=== PATIENT | female | born 1960 | race Caucasian/White ===

== ENCOUNTER 2018-06-30 12:18 | Inpatient (IN) | payer MEDICARE ==
[~2018-06-30] VITALS: Ht 157.5 cm; Wt 52.4 kg
[2018-06-30] VITALS (24 sets, daily range): BP systolic 125–225; BP diastolic 58–109
[~2018-06-30 12:18] MED LIST: ADVAIR DISK1 IN; ADVAIR DISKU1 IN; ALLOPURINOL300 MG PO; ASPIRIN ADULT L81 M1; ASPIRIN LOW81 M1 PO; ATIVAN0.5 MG PO; BACTRIM DS1 TAB PO; CLARITIN10 MG PO; CLINDAMYCIN300 MG PO; CORTISPORIN OTI10 M2 AD; CYCLOBENZAPR10 MG PO; DIAZEPAM5 MG PO; DICLOFENAC75 MG; DIFLUCAN150 MG PO; DOXYCYCL HYC100 M3 OR; DOXYCYCL HYC100 MG PO; DUONEB IN; EFFEXOR XR75 MG PO; FLEXERIL OR; FLONASE NASAL50 MCG; FLONASE0.05 %; FLORASTOR250 M1 PO; FLOVENT HFA44 MCG IN; GABAPENTIN100 MG PO; GAUZE; HYDROCHLORO25 MG/TAB PO; HYDROCHLOROT25 MG PO; HYDROCO/APAP1 TA9 PO; IMITREX25 MG PO; LIPITOR80 M1 PO; LISINOPRIL10 MG PO; LISINOPRIL20 M1 PO; LISINOPRIL20 MG PO; LISINOPRIL5 MG OR; LOPRESSOR 550 MG/TAB PO; LORTAB 7.57.5 MG PO; MEDDOSEPAK PO; MELOXICAM7.5 MG PO; METHOCARBAM500 MG; MULTI VIT; NAPROSYN500 MG PO; NORCO1 TA1; NORVASC PO; PERCOCET 5/325M1 TAB PO; PHENERGAN25 MG/TAB; PRAVACHOL20 MG PO; PRAVASTATIN SOD40 MG PO; PROVENTIL HFA IN; PROVENTIL INH17 GM IN; PROZAC20 MG PO; SERTRALINE50 MG; TESSALON PER100 MG PO; TRAZODONE100 MG PO; TRAZODONE50 MG PO; TRICOR48 MG PO; TYLENOL325 MG OR; ULTRAM50 MG OR; ULTRAM50 MG PO; ZANAFLEX4 MG PO; ZYRTEC10 MG PO; [UNRECOGNIZED DRUG - OTHER]; [UNRECOGNIZED DRUG - OTHER] EX; [UNRECOGNIZED DRUG - SUPPLY] EX
--- NOTE | 2018-06-30 12:19 | NUR ---
PT TAKEN DIRECTLY TO RM 10 IN WHEELCHAIR WITH SOB, NO FAMILY MEMBERS PRESENT. PT ASSISTED TO STRETCHER AND MONITORS PLACE. NOTIFIED
--- NOTE | 2018-06-30 12:39 | NUR ---
pt immediately to room 10 via wc. pt anxious, hyperventilating, c/o shortness of breath that is worse while laying flat or on exertion. pt states " haven't been on any of my medication for COPD in the past year. monitor shows sinus tach, no ectopy. md at bedside.
[2018-06-30 12:54] LABS: IMMATURE GRANULOCYTES 0.6 % (0.0-5.0); MEAN CELL VOLUME 96.5 fL CALC (80.0-100.0); MEAN CORPUSCULAR HGB 33.2 pG CALC (26.0-32.0); MEAN CORPUSCULAR HGB CONC 34.4 g/L CALC (32.0-36.0); NEUT# 5.92 thou/uL (2.00-7.15); RED BLOOD COUNT 2.83 mill/uL (4.20-5.60); RED CELL DISTRI WIDTH 13.2 % (11.5-15.5)
[2018-06-30 13:05] LABS: HEMATOCRIT 27.3 % (37.0-47.0); HEMOGLOBIN 9.4 g/dl (12.0-16.0)
--- NOTE | 2018-06-30 13:06 | NUR ---
pt with hob elevated, non productive cough noted, ls diminished. monitor shows sr, no ectopy. pt medicated with labetolol 20mg iv slow push for hypertension. bp 228/101
[2018-06-30 13:16] LABS: ALBUMIN 3.7 g/dL (3.2-5.0); BILIRUBIN, TOTAL 0.9 mg/dL (0.0-1.4); POTASSIUM 3.3 mmol/l (3.5-5.1); TOTAL PROTEIN 6.6 g/dL (6.3-8.2)
--- NOTE | 2018-06-30 14:00 | NUR ---
INITIATED IV AZITHROMYCIN ORDERED. PT RESP EVEN AND UNLABORED SLIGHTLY TACHYPNEIC RR 24. MAEW.PT STATES HER CHEST HURTS "FROM COUGHTING". O2 SAT 100% ON O2@2L VIA NC
--- NOTE | 2018-06-30 14:40 | NUR ---
pt reports pain to iv site right wrist. iv removed per pt request.
--- NOTE | 2018-06-30 14:55 | NUR ---
CM spoke with regarding admission status and after review of messi chart advised IP. Dr. Llamas voiced agreement.
--- NOTE | 2018-06-30 15:14 | NUR ---
Admission Note Report Given to: moris canada Transported by: Wheelchair x Stretcher Transported with: x Nurse x Transporter x Patent IV x O2 x Field Automobile Adjuster
--- NOTE | 2018-06-30 15:31 | NUR ---
PT ARRIVED TO ICU BED 7 VIA STRETCHER FROM ED. AMBULATED WITH CANE TO BED WITH SBA, STEADY GAIT. PT A&OX3, ABLE TO MAKE NEEDS KNOWN.PT STATES ALLERGY TO PCN AND LEVAQUIN, SOME ADHESIVES. PT IS SR ON TELEMETRY, HR-81, B/P- 198/88 ,T-97.5, RR-22, [id number]% ON 2LPM VIA NC, RESPIRATION EVEN/UNLABORED. LS CLEAR IN UPPER LOBES, DIMINISHED IN THE BASES. PT DENIES SOB AT THIS TIME. ABDOMEN SOFT, NON/TENDER, BSX4. PT STATES LAST BM 1018. PT SKIN CDI, BRUISING NOTED ON RLE FROM TOES TO MID CALF, PT CAP REFILL <3SEC, ABLE TO FLEX AND EXT AT ANKLE, WIGGLE ALL DIGITS. PT STATED SHE FELL AFTER AND EPISODE OF SYNCOPE AT HOME 3 DAYS AGO. PT RESTING IN BED, ORIENTED TO ROOM, UNIT AND CALL LIGHT . PT DEMONSTARTED AND VERBALIZED UNDERSTANDING. CALL LIGHT IN REACH, WILL MONITOR.
--- NOTE | 2018-06-30 16:15 | NUR ---
DAUGHTER ARRIVED AT THE BEDSIDE.
--- NOTE | 2018-06-30 16:20 | NUR ---
DR. OTERO AT THE BEDSIDE FOR ASSESSMENT AND TO DISCUSS PLAN OF CARE, NEW ORDERS RECIEVED.
--- NOTE | 2018-06-30 17:09 | NUR ---
CARDENE 5MG/HR STARTED TO LFA,PER ORDERS. NO S/S OF INFILTRATION NOTED AT SITE.
--- NOTE | 2018-06-30 17:40 | NUR ---
Peripheral IV started. IV access obtained with #20 AutoGuard at Right Forearm with IV stick attempts. Flushes easily with good blood return.
--- NOTE | 2018-06-30 17:55 | NUR ---
16FR KRUSE CATHETER PLACED USING STERILE TECHNIQUE, IMMEDIATE URINE RETURN NOTED. PT TOLERATED PROCEDURE WELL. URINE SPECIMEN OBTAINED AND SENT TO LAB.
--- NOTE | 2018-06-30 18:15 | NUR ---
DIETARY ON UNIT, DINNER TRAY SET UP. MORE FAMILY ARRIVED AT BEDSIDE.
[2018-06-30 19:59] LABS: URINE BILIRUBIN - DIPSTICK NEGATIVE (NEGATIVE); URINE BLOOD DIPSTICK TRACE-INTACT (NEGATIVE); URINE CLARITY CLEAR; URINE COLOR YELLOW; URINE GLUCOSE - DIPSTICK NEGATIVE (NEGATIVE); URINE KETONE NEGATIVE (NEGATIVE); URINE LEUK ESTERASE NEGATIVE (NEGATIVE); URINE NITRITE - DIPSTICK NEGATIVE (Negative); URINE PH 5.5 (4.5-8.0); URINE PROTEIN - DIPSTICK 100 mg/dL (NEG-TRACE); URINE UROBILINOGEN - DIPSTICK 0.2 E.U./dL (0.2)
[2018-06-30 20:00] LABS: URINE RBC 0-2 RBC/hpf (0-5)
--- NOTE | 2018-06-30 20:00 | NUR ---
PT IN HIGHFOWLERS A/O X3, RESPIRATIONS EVEN AND UNLABORED ON O2 @2L VIA NC, O2 SAT 96%, C/O GENERALIZED PAIN AND AXIETY. DR. OTERO NOTIFIED, NEW ORDERS RECEIVED, WILL MEDICATE PER ORDERS. LR INFUSING AT 50ML/HR, CARDENE GTT AT 5MG/HR, B/P 153/84, HR 90. KRUSE CATHETER DRAINING CLEAR YELLOW URINE. PT AWARE SHE IS ON 1LITER FLUID RESTRICTION. ENCOURAGED TO USE CALL LIGHT FOR ASSISTANCE, WILL CONTINUE TO MONITOR.
[2018-06-30 20:01] LABS: COCAINE NEGATIVE (NEGATIVE); METHADONE NEGATIVE (NEGATIVE); TETRAHYDROCANNABIONOL NEGATIVE (NEGATIVE)
[2018-06-30 20:02] LABS: BARBITURATES NEGATIVE (NEGATIVE); OXCYCODONE NEGATIVE (NEGATIVE); TRICYLIC ANTIDEPRESSANTS NEGATIVE (NEGATIVE)
--- NOTE | 2018-06-30 21:10 | NUR ---
C/O GENERALIZED PAIN 04/30, MORPHINE 2MG IV ADMINISTERED PER DR'S ORDERS.
--- NOTE | 2018-06-30 23:40 | NUR ---
CARDENE GTT RATE REDUCED TO 2.5MG/HR, B/P 125/62, HR 83. RESTING WITH EYES CLOSED, AND SNORING, CALL LIGHT IN REACH. WILL CONTINUE TO MONITOR.
[2018-07-01] VITALS (20 sets, daily range): BP systolic 135–214; BP diastolic 64–108
--- NOTE | 2018-07-01 01:05 | NUR ---
RESTING WITH EYES CLOSED, RESPIRATIONS EVEN AND UNLABORED. CARDENE GTT INFUSING AT 2.5MG/HR, B/P 135/64, HR 91. CALL LIGHT IN REACH.
--- NOTE | 2018-07-01 03:00 | NUR ---
RESTING WITH EYES CLOSED, RESPIRATIONS EVEN AND UNLABORED, B/P 146/69, HR 82. CADENE GTT INFUSING TO RFA AT 2.5MG/HR. CALL LIGHT IN REACH. WILL CONTINUE TO MONITOR.
--- NOTE | 2018-07-01 04:58 | NUR ---
MORNING BLOOD WORK DRAWN BY RENEWABLE ENERGY ENGINEER, TOLERATED WELL.
--- NOTE | 2018-07-01 05:14 | NUR ---
PT TEARY EYED AND EMOTIONAL REGARDING HER HEALTH, TEACHING DONE WITH PT REGARDING COMPLIANCE WITH MEDS AND F/U WITH DOCTORS APPOINTMENTS. C/O GENERALIZED PAIN 8/10, MORPHINE 2MG IV ADMINISTERED PER DR'S ORDERS. SNACK PROVIDED PER PT REQUEST,CALL LIGHT IN REACH.
[2018-07-01 05:43] LABS: ALBUMIN 3.1 g/dL (3.2-5.0); BILIRUBIN, TOTAL 0.4 mg/dL (0.0-1.4); HEMATOCRIT 24.8 % (37.0-47.0); HEMOGLOBIN 8.3 g/dl (12.0-16.0); IMMATURE GRANULOCYTES 0.6 % (0.0-5.0); MAGNESIUM 1.8 mg/dL (1.6-2.3); MEAN CELL VOLUME 99.2 fL CALC (80.0-100.0); MEAN CORPUSCULAR HGB 33.2 pG CALC (26.0-32.0); MEAN CORPUSCULAR HGB CONC 33.5 g/L CALC (32.0-36.0); NEUT# 6.12 thou/uL (2.00-7.15); POTASSIUM 3.7 mmol/l (3.5-5.1); RED BLOOD COUNT 2.5 mill/uL (4.20-5.60); RED CELL DISTRI WIDTH 13.5 % (11.5-15.5); TOTAL PROTEIN 5.6 g/dL (6.3-8.2)
--- NOTE | 2018-07-01 08:00 | NUR ---
PT FINISHING WITH BREAKFAST AT THIS TIME. ASSESMENT COMPLETED AT THIS TIME (SEE INTERVENTIONS). LUNG SOUNDS CLEAR WITH DIMINISHED BASES. HR NORMAL. BOWEL SOUNDS ACTIVE. NO EDEMA OR SWELLING. #22 IN THE LFA AND #20 RFA INFUSING WELL. FREE FROM REDNESS OR EDEMA. PT HAVING PAIN BUT DOESNT WANT MEDS AT THIS TIME. CALL BELLO IN REACH. WILL CONTINUE TO MONITOR.
--- NOTE | 2018-07-01 10:00 | NUR ---
DR OTERO IN TO SEE PT AT THIS TIME.SON AND DAUGHTER AT BEDSIDE WELL. SPOKE TO PT REGARDING POSSIBLE NEED FOR DIALYSIS R/T CONTINUED POOR KIDNEY FUNCTION. ALSO SPOKE TO HER REGARDING IMPORTANCE OF COMPLIANCY WITH HEALTHCARE. EDUCATED REGARDING DR LEE CONSULT. PT AWARE AND ALL QUESTIONS ANSWERED. VERBALIZES UNDERSTANDING.
[2018-07-01 11:12] LABS: PROTHROMBIN TIME 10.7 SECONDS (9.0-12.5)
[2018-07-01 11:18] LABS: TSH, 3RD GENERATION 1.26 uIU/mL (0.47 - 4.68)
--- NOTE | 2018-07-01 11:35 | NUR ---
PT TO US VIA WHEELCHAIR. PORTABLE O2 AT 2L WITH PT.
--- NOTE | 2018-07-01 13:40 | NUR ---
PT RETURNS FROM US. TOLERATED WELL. FEELS MUCH BETTER. VERY HUNGRY. MEDICATED PER ORDER.#20 RFA INFUSING WELL. SET UP FOR LUNCH. VOICING NO NEW COMPLAINTS. CALL BELLO IN REACH. WILL CONTINUE TO MONITOR.
--- NOTE | 2018-07-01 14:15 | NUR ---
AWARE OF CONTINUED HYPERTENSION
--- NOTE | 2018-07-01 15:00 | NUR ---
PT RESTING QUIETLY IN BED WITH EYES CLOSED. BP 204/97 HR 86. PT ASYMPTOMATIC. RESPIRATIONS ARE EVEN AND UNLABORED. WILL CONTINUE TO MONITOR.
--- NOTE | 2018-07-01 16:45 | NUR ---
PT AWAKE WITH FAMILY AT BED SIDE. ASKING FOR DOUBLE PORTIONS OF FOOD. STILL FEELING PRETTY GOOD. STILL HAVING SOME PAIN BUT WOULD LIKE TO HOLD OFF FOR NOW.VOICING NO COMPLAINTS AT THIS TIME.
--- NOTE | 2018-07-01 16:45 | NUR ---
AWARE OF CONTINUED HYPERTENSION, NEW ORDERS REC'D
--- NOTE | 2018-07-01 17:00 | NUR ---
PT MEDICATED FOR ORDERS. NEW VISITORS AT BEDSIDE.
--- NOTE | 2018-07-01 17:15 | NUR ---
MEDICATED FOR HYPERTENSION ORDERD, FAMILY MEMBERS AT BEDSIDE, WILL CONTINUE TO MONITOR.
--- NOTE | 2018-07-01 17:40 | NUR ---
PT ASSISTED TO ECHO VIA WHEELCHAIR WITH BUSINESS EMPLOYMENT SPECIALIST. FAMILY REMAINS IN THE ROOM.
--- NOTE | 2018-07-01 18:30 | NUR ---
PT RETURNED FROM US VIA WHEELCHAIR. MEDICATED FOR PAIN PER ORDER. PT SHAKY AND TEARFUL.COMFORT PROVIDED. DAUGHTER AND SON AT BEDSIDE. FOOD SETUP WHEN READY TO EAT. CALL BELLO IN REACH. WILL CONTINUE TO MONITOR.
--- NOTE | 2018-07-01 19:10 | NUR ---
PT IN HIGHFOWLERS A/O X3, RESPIRATINS EVEN AND UNLABORED ON RA, O2 SAT 98%. ADMITS TO GENERALIZED PAIN /10, WAS MEDICATED WITH MORPHINE BY JT RN AT 1840. B/P 199/82, HR 94, HYDRALAZINE IV ALSO GIVEN BY JT RN AT 1700. FAMILY AT BED SIDE. 2GM NA DIET HEATED FOR PT AT THIS TIME. NS INFUSING TO RFA AT KVO. ORIENTED TO USE CALL LIGHT FOR ASSISTANCE, WILL CONTINUE TO MONITOR.
--- NOTE | 2018-07-01 20:00 | NUR ---
OOB TO BATHROOM WITH SLOW WEAK GAIT, PROVIDING OWN COMPLETE BATH, AND ORAL CARE, CLEAN GOWN AND CLEAN LINENS PROVIDED. BACK TO BED. CALL LIGHT IN REACH.
--- NOTE | 2018-07-01 22:00 | NUR ---
SITTING UP IN BED READING, VOICES NO CONCERNS AT THIS TIME. RESPIRATIONS EVEN AND UNLABORED. CALL LIGHT IN REACH.
[2018-07-02] VITALS (21 sets, daily range): BP systolic 152–228; BP diastolic 66–94
--- NOTE | 2018-07-02 00:20 | NUR ---
RESTING IN FOWLERS POSITION WITH EYES CLOSED, RESPIRATIONS EVEN AND UNLABORED ON RA, O2 SAT 95%. B/P 153/71, SR 80 ON HEART MONITOR. CALL LIGHT IN REACH, WILL CONTINUE TO MONITOR.
--- NOTE | 2018-07-02 02:07 | NUR ---
RESTING IN FOWLERS POSITION WITH EYES CLOSED, RESPIRATIONS EVEN AND UNLABORED ON RA, O2 SAT 94%. B/P 163/77, SR 82 ON HEART MONITOR. CALL LIGHT IN REACH, WILL CONTINUE TO MONITOR.
--- NOTE | 2018-07-02 05:16 | NUR ---
RESTING WITH EYES CLOSED, RESPIRATIONS EVEN AND UNLABORED, WAKES EASILY TO VERBAL COMMAND, B/P 170/83, HR 88, HYDRALAZINE 10MG IV ADMINISTERED BY АЛЕКСАНДР PADILLA. DENIES PAIN. CALL LIGHT IN REACH.
--- NOTE | 2018-07-02 06:20 | NUR ---
MORNING LABS DRAWN BY COMPUTER AIDED DESIGN DRAFTER, TOLERATED WELL.
[2018-07-02 06:36] LABS: HEMATOCRIT 25.5 % (37.0-47.0); HEMOGLOBIN 8.5 g/dl (12.0-16.0); IMMATURE GRANULOCYTES 0.7 % (0.0-5.0); MEAN CELL VOLUME 100.8 fL CALC (80.0-100.0); MEAN CORPUSCULAR HGB 33.6 pG CALC (26.0-32.0); MEAN CORPUSCULAR HGB CONC 33.3 g/L CALC (32.0-36.0); NEUT# 5.6 thou/uL (2.00-7.15); RED BLOOD COUNT 2.53 mill/uL (4.20-5.60); RED CELL DISTRI WIDTH 14.4 % (11.5-15.5)
[2018-07-02 06:58] LABS: ALBUMIN 2.8 g/dL (3.2-5.0); BILIRUBIN, TOTAL 0.3 mg/dL (0.0-1.4); CREATININE 4.5 mg/dL (0.5-1.0); MAGNESIUM 1.8 mg/dL (1.6-2.3)
[2018-07-02 07:02] LABS: POTASSIUM 4.6 mmol/l (3.5-5.1)
--- NOTE | 2018-07-02 07:20 | NUR ---
PT RESTING IN BED; ALERT AND ORIENTED; AM ASSESSMENT COMPLETED; SEE INTERVENTIONS; O2 AT 2L VIA NC; SATS 96-99%; LUNGS SLIGHTLY COARSE WITH MOIST LABORATORY APPARATUS GLASS GRINDER COUGH, SKIN DRY AND SOME SCATTERED ECCHYMOTIC AREAS OTHERWISE INTACT, IV ACCESS IN R POSTERIOR FOREARM INTACT. AFEBRILE WITH BP SLIGHTLY ELEVATED WILL MEDICATE WITH AM MEDS ORDERED, FLUID RESTRICTION REINFORCED AND MAINTAINED, TELE READING SR RATE INT HE 90'S PT EXHIBITS MILD ANXIETY AT THIS TIME, DOES ADMIT TO HAVEING "REAL BAD ANXIETY ALL MIY LIFE, IT RUNS IN THE FAMILY"; TRACE EDENOTED TO BILATERAL ANKLES, KRUSE CATHETER INTACT FOR STRICT/ACCURATE I&O'S RELATED TO KINDEY FAILURE, CATH SECURITY DEVICE INTACT ON R UPPER THIGH, CALL BELLO WITHIN REACH, SAFETY MEASURES REINFORCED, WILL CONTINUE TO MONITOR.
--- NOTE | 2018-07-02 08:30 | NUR ---
PT HAS GOOD APPETITE AND IS EATING 100% OF MOST MEALS WITH DOUBLE PORTIONS, DENIES N/V, STATES SHE USUALLY HAS BM DAILY AT HOME AND NONE SINCE ADMISSION HERE, WILL DISCUSS WITH MD ON AM ROUNDS. CALL BELLO WITHIN REACH, PT REMAINS RESTING IN BED WTH HOB RAISED ALMOST 90 DEGREES. WILL CONTINUE TO MONITOR.
--- NOTE | 2018-07-02 09:10 | NUR ---
MEDICATED FOR COMPLAINT OF GENERALIZED PAIN, REPOSITIONED FOR COMFORT, O2 REMAINS ON AT 2L VIA NC, COMPLAINTS OF SOME MILD NOSE BLEEDING RELATED TO DRY NARES, WILL HAVE RT HUMIDIFY O2 FOR COMFORT, TOLERATED AM MEAL WELL, FLUID RESTRICTION REINFORCED AND MAINTAINED, WILL CONTINUE TO MONITOR.
--- NOTE | 2018-07-02 09:28 | NUR ---
VISITOR AT BEDSIDE, GOOD PAIN RELIEF VERBALIZED; WILL CONTINUE TO MONITOR.
--- NOTE | 2018-07-02 09:44 | NUR ---
CARY FROM CASE MGMT AT BEDSIDE
--- NOTE | 2018-07-02 09:54 | NUR ---
MGMT REMAINS AT BEDSIDE IWTH PT AND DAUGHTER DISCUSSING PLAN OF CARE AND D/C OPTIONS
--- NOTE | 2018-07-02 10:19 | NUR ---
PT TEARY EYED AND CRYING WITH FAMILY MEMBER, EMOTIONAL SUPPORT PROVIDED XANAX REQUESTED ADN PROVIDED ORDERED, WILL CONTINUE TO MONITOR.
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
--- NOTE | 2018-07-02 10:55 | NUR ---
PT RESTING IN BED REMAINS EMOTIONAL RELATED TO SON VISIT, CASE MGMT AND / YOHANNES GALEANO AT BEDSIDE. PLAN OF CARE DISCUSSED INCLUDING POTENTIAL TRASNFER TO [facility] FOR POSSIBLE DIALYSIS. DAUGHTER AND FRIEND REMAIN AT BEDSIDE.
--- NOTE | 2018-07-02 11:25 | NUR ---
SET UP ASSIST PROVIDED FRO AFTERNOON MEAL, CALL BELLO WITHIN REACH, VISITOR REMAINS AT BEDSIDE.
[2018-07-02 12:25] LABS: CHOLESTEROL HDL RATIO 3.7 (<4.4 (CALC))
--- NOTE | 2018-07-02 12:35 | NUR ---
PT ATE 100% OF AFTERNOON MEAL, FAMILY MEMBERS AT BEDSIDE, PT REMAINS INTERMITTENLY EMOTIONAL AND TEARY BUT BP SLIGHTLY IMPROVED, CALL BELLO WITHIN REACH, WILL CONTINUE TO MONITOR.
--- NOTE | 2018-07-02 13:40 | NUR ---
PT RESTING IN BED WITH EYES CLOSED, NO S/S OF DISTRESS, CONSIDERABLY LESS ANXIOUS AND TEARY EYED THAN EARLIER, CALL BELLO WITHIN REACH, FLUID RESTRICTION MAINTAINED, WILL CONTINUE TO MONITOR.
--- NOTE | 2018-07-02 14:31 | NUR ---
PT RESTING IN BED, VS STABLE, NO VISITORS AT THIS TIME, FLUID RESTRICTION MAINTAINED, WILL CONTINUE TO MONITOR
--- NOTE | 2018-07-02 14:59 | NUR ---
DAUGHTER MEETING WITH CASE MGMT AND DCF SPINDLE MAKER, PT MEDICATED ORDERED, WILL CONTINUE TO MONITOR.
--- NOTE | 2018-07-02 15:03 | NUR ---
VISITOR AT BEDSIDE
--- NOTE | 2018-07-02 15:33 | NUR ---
DCF LOSS PREVENTION AUDITOR AT BEDSIDE MEETING WITH PATIENT.
--- NOTE | 2018-07-02 16:14 | NUR ---
DC GONE AT THIS TIME AND VISITOR BACK AT BEDSIDE, CALL BELLO WITHIN REACH, WILL CONTINUE TO MONITOR.
--- NOTE | 2018-07-02 17:44 | NUR ---
SET UP ASSIST PROVIDED FRO PM MEAL, DAUGHTER AND GRANDDAUGHTER AT BEDSIDE, PT CALM AND DENIES PAIN OR DISCOMFORT AT THIS TIME, O2 REMAINS ON AT 2L VIA NC, BP IMPROVED OVER THIS AM, REMAINS AFEBRILE, WILL CONTINUE TO MONITOR.
--- NOTE | 2018-07-02 18:13 | NUR ---
POWER OF PACKAGE DYE STAND LOADER PAPERWORK PLACED ON PATIENT CHART, TOLERATED PM MEAL WELL, CALL BELLO WITHIN REACH
--- NOTE | 2018-07-02 19:10 | NUR ---
awakens easily. denies acute resp distress. o2 cont per nc. diagnostic cardiac sonographer shows sinus rhythm. #20 rfa ns infusing @ 20cchr. fluid restriction conts. krause cath in place. urine clear yellow. fall precautions cont.
--- NOTE | 2018-07-02 20:00 | NUR ---
awake. no distress. vs.
--- NOTE | 2018-07-02 22:00 | NUR ---
left. no distress. insulation board coater operator shows sinus rhythm.
[2018-07-03 00:01] VITALS: BP 138/62
--- NOTE | 2018-07-03 00:01 | NUR ---
eyes closed. no distress. o2 cont.
[2018-07-03 02:00] VITALS: BP 133/60
--- NOTE | 2018-07-03 02:00 | NUR ---
resting quietly. resps even & unlabored. no apparent distress.
[2018-07-03 04:00] VITALS: BP 137/65
--- NOTE | 2018-07-03 04:00 | NUR ---
eyes closed. no distress. cardiac technician shows sinus rhythm.
--- NOTE | 2018-07-03 05:15 | NUR ---
lab here. blood drawn.
[2018-07-03 05:45] LABS: HEMOGLOBIN 7.4 g/dl (12.0-16.0); IMMATURE GRANULOCYTES 0.9 % (0.0-5.0); MEAN CELL VOLUME 102.7 fL CALC (80.0-100.0); MEAN CORPUSCULAR HGB CONC 32.2 g/L CALC (32.0-36.0); NEUT# 6.04 thou/uL (2.00-7.15); RED BLOOD COUNT 2.24 mill/uL (4.20-5.60); RED CELL DISTRI WIDTH 14.5 % (11.5-15.5)
[2018-07-03 05:50] LABS: ALBUMIN 2.6 g/dL (3.2-5.0); BILIRUBIN, TOTAL 0.2 mg/dL (0.0-1.4); CREATININE 4.7 mg/dL (0.5-1.0); MAGNESIUM 1.9 mg/dL (1.6-2.3); POTASSIUM 4.4 mmol/l (3.5-5.1); TOTAL PROTEIN 4.9 g/dL (6.3-8.2)
--- NOTE | 2018-07-03 05:51 | NUR ---
eyes closed. no distress. information officer shows sinus rhythm.
--- NOTE | 2018-07-03 06:45 | NUR ---
RECIEVED REPORT FROM KASSIE HUSSEIN. ASSUMED PT CARE.
[2018-07-03 07:30] VITALS: BP 140/64
--- NOTE | 2018-07-03 07:30 | NUR ---
PT A&0X3, ABLE TO MAKE NEEDS KNOWN. REMAIN SR ON TELEMETRY, HR- 79, B/P 140/64, RR-24, SA02@93% ON 2LPM VIA NC. PT DENIES CHEST PAIN, SOB OR DISTRESS AT THIS TIME. RESP EVEN/UNLABORED, LS WITH RHONCHI IN UPPER LOBES AND DIMINISHED IN LOWER LOBES, NON-PRODUCTIVE COUGH NOTED. ABDOMEN SOFT/ TENDER TO PALPATE IN RLQ, BSX4 ACTIVE, PT STATES LAST BM 10--18, KRUSE PATENT DRAINING PALE CLEAR YELLOW URINE TO BSD. KRUSE CARE PROVIDED. SKIN CDI WITH MINIMAL BRUISING TO R MALONEY. PT RESTING IN BED, OFFERS NO COMPLAINTS AT THIS TIME. CALL LIGHT IN REACH, WILL MONITOR.20G TO RFA FLUSHES, LEAKING NOTED.
--- NOTE | 2018-07-03 07:35 | NUR ---
IV site discontinued, cath intact. some edema , no redness, voices no discomfort.
--- NOTE | 2018-07-03 07:45 | NUR ---
DIETARY ON UNIT, BREAKFAST TRAY SET UP.
--- NOTE | 2018-07-03 08:30 | NUR ---
PT ASSISTED TO BATHROOM, ASSISTED BACK TO BED. PT TOLERATED WELL.
[2018-07-03 10:00] VITALS: BP 142/57
--- NOTE | 2018-07-03 10:30 | NUR ---
Peripheral IV started. IV access obtained with #24 AutoGuard at Left Forearm with IV stick attempts. Flushes easily with good blood return.
--- NOTE | 2018-07-03 10:35 | NUR ---
AT BEDSIDE FOR ASSESSMENT AND TO DISCUSS PLAN OF CARE, PT TRANSFER INITIATED. CONSENT TO TRANSFER SIGNED BY PT.
--- NOTE | 2018-07-03 10:36 | NUR ---
SPOKE WITH GINGER RN NURSING SALES COMMUNICATIONS MANAGER, GIVEN ICU BED 246 ACCEPTING BED, STATES GINGER WILL ACCEPT AT [facility]. REQUESTED WE FAX FACESHEET AND ORDERS TO [phone], AND TO HAVE RN CALL REPORT TO [phone].
--- NOTE | 2018-07-03 11:30 | NUR ---
[facility] CALLED TO CONFIRM TRANSFER, PT ACCEPTED TO [facility], ICU BED 247
--- NOTE | 2018-07-03 11:32 | NUR ---
NOTIFIED DARYL IN RADIOLOGY FOR CD OF ALL IMAGING.
--- NOTE | 2018-07-03 11:40 | NUR ---
FAMILY AT BEDSIDE.
[2018-07-03 12:00] VITALS: BP 148/68
--- NOTE | 2018-07-03 12:17 | NUR ---
PENG AT [facility] NOTIFIED,REPORT GIVEN. ETA OF TRANPORT 30MIN GIVEN. PT AND FAMILY UPDATED.
--- NOTE | 2018-07-03 12:30 | NUR ---
[facility] HERE FOR PICKUP, ICU BED 7. REPORT GIVEN TO ELSA AIRPLANE CHARTER CLERK.
--- NOTE | 2018-07-03 12:50 | NUR ---
ELSA WITH [facility] LEFT WITH PT VIA STRETCHER, PT IN STABLE CONDITION, FAMILY AT BEDSIDE, TO BE FOLLOWING PT TO [facility] ICU BED 247.
--- NOTE | 2018-07-03 12:51 | NUR ---
REPORT CALLED TO [phone] LEEANNA, RESEARCH LEADER NURSE AT [facility]. ICU, BED 247.
== END 2018-07-03 12:50 | DRG 682 ==
LOC: ED 12:18 → ED-I 14:27 → ED 14:38 → ICU 14:39
PROVIDERS: Emergency Medicine; ADMIT Internal Medicine Nephrology; ATTEND Internal Medicine Nephrology
PROC: 0T9B70Z Drainage of Bladder with Drainage Device, Via Natural or Artificial Opening (ICD-10-PCS; 2018-06-30)
PROC: 0W993ZZ Drainage of Right Pleural Cavity, Percutaneous Approach (ICD-10-PCS; principal; 2018-07-01)
DX: N17.9 Acute kidney failure, unspecified (principal); J18.9 Pneumonia, unspecified organism; I12.0 Hypertensive chronic kidney disease with stage 5 chronic kidney disease or end stage renal disease; J44.0 Chronic obstructive pulmonary disease with (acute) lower respiratory infection; E87.4 Mixed disorder of acid-base balance; J91.8 Pleural effusion in other conditions classified elsewhere; N18.6 End stage renal disease; N25.81 Secondary hyperparathyroidism of renal origin; I16.0 Hypertensive urgency; S80.811A Abrasion, right lower leg, initial encounter; I25.10 Atherosclerotic heart disease of native coronary artery without angina pectoris; F17.210 Nicotine dependence, cigarettes, uncomplicated; T50.906A Underdosing of unspecified drugs, medicaments and biological substances, initial encounter; D63.1 Anemia in chronic kidney disease; F32.9 Major depressive disorder, single episode, unspecified; E78.5 Hyperlipidemia, unspecified; M10.9 Gout, unspecified; E55.9 Vitamin D deficiency, unspecified; E83.39 Other disorders of phosphorus metabolism; I34.0 Nonrheumatic mitral (valve) insufficiency; W19.XXXA Unspecified fall, initial encounter; Z95.820 Peripheral vascular angioplasty status with implants and grafts; Z88.0 Allergy status to penicillin; Z86.73 Personal history of transient ischemic attack (TIA), and cerebral infarction without residual deficits; Z91.128 Patient's intentional underdosing of medication regimen for other reason
CPT/HCPCS: J0885; J1756

== ENCOUNTER → 2018-11-11 | Outpatient (REF) | payer MEDICARE ==
[~2018-11-11] MED LIST changes: +ALBUTEROL SUL0.083 % IN; +ALPRAZOLAM0.25 MG PO; +ASPIRIN81 MG PO; +CONSTULOSE10 GM/15 M PO; +CYANOCOBAL1000 MCG/M IM; +FLOVENT DI50 MCG/BLI IN; +FLUOXETINE20 MG PO; +FOLIC ACID1 MG PO; +FUROSEMIDE40 MG PO; +NIFEDIPINE30 MG PO; +OXYCODONE HCL15 MG PO; +PHOSLO667 M1 PO; +SPIRIVA RE2.5 MCG/AC IN
== END | disposition home or self-care (01) ==
LOC: MRI 11-05 07:30
PROVIDERS: ATTEND Orthopaedic Surgery
DX: M25.551 Pain in right hip (principal); M25.552 Pain in left hip; M54.5 Low back pain; M50.322 Other cervical disc degeneration at C5-C6 level

== ENCOUNTER → 2018-12-01 | Outpatient (REF) | payer MEDICARE, MEDICAID | END | disposition home or self-care (01) | LOC: NUCMED 07:27 → STRESS 07:27 → NUCMED 07:30 | PROVIDERS: ATTEND Internal Medicine | DX: Z01.818 Encounter for other preprocedural examination (principal); I73.9 Peripheral vascular disease, unspecified; K21.9 Gastro-esophageal reflux disease without esophagitis; I50.9 Heart failure, unspecified | CPT/HCPCS: A9502; J0706; J2785 ==

== ENCOUNTER → 2018-12-09 | Outpatient (REF) | payer MEDICARE | END | disposition home or self-care (01) | LOC: MRI 11-30 10:30 | PROVIDERS: ATTEND Orthopaedic Surgery | DX: M25.511 Pain in right shoulder (principal); M25.512 Pain in left shoulder; Z98.890 Other specified postprocedural states ==

== ENCOUNTER 2019-02-11 16:35 | Emergency (ER) | payer MEDICARE, MEDICAID ==
[~2019-02-11] VITALS: Ht 157.5 cm; Wt 61.4 kg
[2019-02-11 18:00] VITALS: BP 141/65
[2019-02-11] MEDS ORDERED: OXYCODONE HCL10 MG PO (18:06)
[2019-02-11] MEDS ORDERED: FAMOTIDINE20 M1 PO (18:08)
[2019-02-11] MEDS ORDERED: ONDANSETRON4 MG PO (18:08)
[2019-02-11] MEDS ORDERED: NIFEDIPINE ER30 MG PO (18:09)
[2019-02-11] MEDS ORDERED: ELIQUIS2.5 MG PO (18:09)
== END 2019-02-11 18:00 | disposition home or self-care (01) ==
LOC: ED 16:35
DX: S50.02XA Contusion of left elbow, initial encounter (principal); S50.312A Abrasion of left elbow, initial encounter; S70.02XA Contusion of left hip, initial encounter; S90.32XA Contusion of left foot, initial encounter; W17.89XA Other fall from one level to another, initial encounter; Y92.009 Unspecified place in unspecified non-institutional (private) residence as the place of occurrence of the external cause; I12.0 Hypertensive chronic kidney disease with stage 5 chronic kidney disease or end stage renal disease; N18.6 End stage renal disease; F17.210 Nicotine dependence, cigarettes, uncomplicated; Z99.2 Dependence on renal dialysis

== ENCOUNTER 2019-06-03 09:18 | Emergency (ER) | payer MEDICARE ==
[~2019-06-03] VITALS: Ht 157.5 cm; Wt 61.0 kg
[~2019-06-03 09:18] MED LIST changes: +ELIQUIS2.5 MG PO; +FAMOTIDINE20 M1 PO; +NIFEDIPINE ER30 MG PO; +ONDANSETRON4 MG PO; +OXYCODONE HCL10 MG PO
[2019-06-03 11:10] LABS: HEMATOCRIT 35.3 % (37.0-47.0); HEMOGLOBIN 11.5 g/dl (12.0-16.0); IMMATURE GRANULOCYTES 0.7 % (0.0-5.0); MEAN CELL VOLUME 100.9 fL CALC (80.0-100.0); MEAN CORPUSCULAR HGB 32.9 pG CALC (26.0-32.0); MEAN CORPUSCULAR HGB CONC 32.6 g/L CALC (32.0-36.0); NEUT# 6.89 thou/uL (2.00-7.15); RED BLOOD COUNT 3.5 mill/uL (4.20-5.60); RED CELL DISTRI WIDTH 13.8 % (11.5-15.5)
[2019-06-03 11:18] LABS: ALBUMIN 4.4 g/dL (3.2-5.0); ANION GAP 17 (6-22 (CALC)); BUN 17 mg/dL (7-17); CARBON DIOXIDE 28 mmol/l (22-30); CHLORIDE 96 mmol/l (95-108); SGOT/AST 21 u/l (14-36); SODIUM 136 mmol/l (137-146); TOTAL PROTEIN 7.3 g/dL (6.3-8.2)
[2019-06-03 11:19] LABS: BUN/CREATININE RATIO 7 (12-20 (CALC)); GFR 20 ML/MIN (>=60 (CALC)); GFR FOR AFR.AMER. 24 ML/MIN (>=60 (CALC))
[2019-06-03 11:20] LABS: ALKALINE PHOSPHATASE 136 u/l (38-126); BILIRUBIN, TOTAL 0.4 mg/dL (0.0-1.4); CREATININE 2.5 mg/dL (0.5-1.0)
[2019-06-03 11:39] LABS: MYOGLOBIN 348 ng/mL (0 - 62)
[2019-06-03] MEDS ORDERED: LORTAB 1010 MG PO (12:43)
[2019-06-03 12:58] VITALS: BP 177/74
[2019-06-03] MEDS ORDERED: FLEXERIL PO (13:00)
== END 2019-06-03 13:05 | disposition home or self-care (01) ==
LOC: ED 09:18
PROVIDERS: Emergency Medicine
DX: M79.10 Myalgia, unspecified site (principal); I12.0 Hypertensive chronic kidney disease with stage 5 chronic kidney disease or end stage renal disease; N18.6 End stage renal disease; J44.9 Chronic obstructive pulmonary disease, unspecified; I25.2 Old myocardial infarction; F17.210 Nicotine dependence, cigarettes, uncomplicated; Z99.2 Dependence on renal dialysis; Z86.73 Personal history of transient ischemic attack (TIA), and cerebral infarction without residual deficits
CPT/HCPCS: J3360

== ENCOUNTER 2019-07-11 13:16 | Emergency (ER) | payer MEDICARE, MEDICAID ==
[~2019-07-11] VITALS: Ht 157.5 cm; Wt 63.0 kg
[~2019-07-11 13:16] MED LIST changes: +FLEXERIL PO; +LORTAB 1010 MG PO
[2019-07-11 14:44] LABS: HEMATOCRIT 35.5 % (37.0-47.0); HEMOGLOBIN 11.7 g/dl (12.0-16.0); IMMATURE GRANULOCYTES 0.6 % (0.0-5.0); MEAN CELL VOLUME 101.7 fL CALC (80.0-100.0); MEAN CORPUSCULAR HGB 33.5 pG CALC (26.0-32.0); NEUT# 15.22 thou/uL (2.00-7.15); RED BLOOD COUNT 3.49 mill/uL (4.20-5.60); RED CELL DISTRI WIDTH 14.1 % (11.5-15.5)
[2019-07-11 14:58] LABS: TOTAL PROTEIN 6.9 g/dL (6.3-8.2)
[2019-07-11 15:05] LABS: BILIRUBIN, TOTAL 0.6 mg/dL (0.0-1.4); CREATININE 6.6 mg/dL (0.5-1.0); POTASSIUM 4.9 mmol/l (3.5-5.1)
[2019-07-11] MEDS ORDERED: ALLOPURINOL100 MG PO (15:12)
[2019-07-11] MEDS ORDERED: CLOPIDOGREL75 MG PO (15:15)
[2019-07-11] MEDS ORDERED: ONDANSETRON4 MG PO (15:33)
[2019-07-11 18:11] LABS: URINE BILIRUBIN - DIPSTICK NEGATIVE (NEGATIVE); URINE BLOOD DIPSTICK NEGATIVE (NEGATIVE); URINE COLOR YELLOW; URINE GLUCOSE - DIPSTICK NEGATIVE (NEGATIVE); URINE KETONE NEGATIVE (NEGATIVE); URINE LEUK ESTERASE NEGATIVE (NEGATIVE); URINE NITRITE - DIPSTICK NEGATIVE (Negative); URINE PROTEIN - DIPSTICK NEGATIVE (NEG-TRACE); URINE SPECIFIC GRAVITY <=1.005; URINE UROBILINOGEN - DIPSTICK 0.2 E.U./dL (0.2)
[2019-07-11 19:30] VITALS: BP 110/53
== END 2019-07-11 19:30 ==
LOC: ED 13:16
PROVIDERS: Family Medicine
PROC: 05HM33Z Insertion of Infusion Device into Right Internal Jugular Vein, Percutaneous Approach (ICD-10-PCS; principal; 2019-07-11)
DX: K50.80 Crohn's disease of both small and large intestine without complications (principal); I12.0 Hypertensive chronic kidney disease with stage 5 chronic kidney disease or end stage renal disease; N18.6 End stage renal disease; I25.10 Atherosclerotic heart disease of native coronary artery without angina pectoris; J44.9 Chronic obstructive pulmonary disease, unspecified; I25.2 Old myocardial infarction; F17.210 Nicotine dependence, cigarettes, uncomplicated; Z99.2 Dependence on renal dialysis; Z86.73 Personal history of transient ischemic attack (TIA), and cerebral infarction without residual deficits
CPT/HCPCS: Q9967